=== PATIENT | female | born 1990 | race Caucasian/White ===

== ENCOUNTER 2019-05-28 10:38 | Emergency (ER) | payer OTHER ==
[~2019-05-28] VITALS: Ht 172.7 cm; Wt 59.0 kg
[2019-05-28 11:20] LABS: ABSOLUTE NEUTROPHILS 2.4 thou/uL (1.4-8.2); BASOPHILS 0.7 % (0.0-2.0); HEMOGLOBIN 13.6 gm/dL (12.0-15.0); LYMPHOCYTES 32.5 % (24.0-44.0); MCH 31.9 pg (26.0-34.0); MCV 93.9 fL (80.0-100.0); MONOCYTES 6.2 % (1.0-8.0); PLATELET COUNT 184 thou/uL (150-400); POLYS 59.6 % (36.0-66.0); RBC 4.26 mil/uL (4.20-5.00); RDW 13.1 % (10.5-14.5)
[2019-05-28 11:29] LABS: CALCIUM 9.2 mg/dL (8.5-10.1); CREATININE 0.9 mg/dL (0.6-1.0); POTASSIUM 3.8 mmol/L (3.5-5.1)
[2019-05-28 11:35] LABS: TOTAL BILIRUBIN 0.9 mg/dL (<0.1-1.0); TOTAL PROTEIN 7.5 g/dL (6.4-8.2)
[2019-05-28] MEDS ORDERED: REGLAN 10 MG TA10 MG PO (12:21)
[2019-05-28] MEDS ORDERED: NAPROSYN500 MG PO (12:21)
[2019-05-28 12:22] VITALS: BP 119/76
--- NOTE | 2019-05-29 08:07 | EKG ---
[place] [address] [facility] [employer] [place] [address] ELECTROCARDIOGRAM REPORT Name: CJ DE LOS SANTOS Room #: [facility] [place]#: [id number] ������������������ Admission: 05/28/19 ������������������ Attend Phys: Discharge: 05/28/19 ������������������ Date of : 89 Report #: [id number] ����������������������������������������������������������������� [id number] THIS REPORT FOR: //name// [facility] ED Test Date: 2019-05-28 Test Time: 11:36:54 Pat Name: CJ DE LOS SANTOS Department: Room: Gender: F Ur Coordinator: jlambdariana : 1990 Requested By: Tapan Kevin Order Number: [id number] MD: Jarocho Patterson Measurements Intervals [place] Rate: 61 P: 66 FL: 135 QRS: 66 QRSD: 83 T: 43 QT: 454 QTc: 458 Interpretive Statements Sinus rhythm Normal tracing No previous ECG available for comparison Electronically Signed On 05-29-2019 8:07:18 CDT by Jarocho Patterson [email or web address] ��������������������������������������������� <ELECTRONICALLY SIGNED> ���������������������������������������� By: Jarocho Patterson MD, [facility] ��������������������������������������������� 05/29/19 [id number] Jarocho Patterson MD, FACC /EPI
== END 2019-05-28 12:22 | disposition home or self-care (01) ==
LOC: ER 10:38
PROVIDERS: Emergency Medicine
DX: F07.81 Postconcussional syndrome (principal); R42 Dizziness and giddiness